=== PATIENT | female | born 1970 | race Asian ===

== ENCOUNTER 2016-12-30 18:05 | Emergency (ER) | payer MEDICAID, OTHER ==
[~2016-12-30] VITALS: Ht 157.5 cm; Wt 86.4 kg
[~2016-12-30 18:05] MED LIST: NOCURR
[2016-12-30] MEDS ORDERED: HYDROCODONE/ACETAMINOPHEN 5-325 MG TABLET PO ONE (20:15)
[2016-12-30] MEDS ORDERED: KETOROLAC TROMETHAMINE 60 MG/2 ML VIAL IM ONE (20:15)
[2016-12-30] MEDS ORDERED: METHOCARBAMOL 500 MG TABLET PO ONE (20:15)
[2016-12-30 21:25] VITALS: BP 138/89
== END 2016-12-30 21:35 | disposition home or self-care (01) ==
LOC: EMS 18:09
DX: M25.512 Pain in left shoulder (principal)
CPT/HCPCS: 29105; 73030; 96372; 99284; J1885

== ENCOUNTER 2019-01-09 19:03 | Emergency (ER) | payer OTHER ==
[~2019-01-09] VITALS: Ht 154.9 cm; Wt 81.8 kg
[2019-01-09] MEDS ORDERED: IBUPROFEN 600 MG TABLET PO ONE (20:45)
[2019-01-09 22:02] VITALS: BP 124/80
== END 2019-01-09 22:00 | disposition home or self-care (01) ==
LOC: EMS 19:03
DX: M25.571 Pain in right ankle and joints of right foot (principal); M25.471 Effusion, right ankle
CPT/HCPCS: 29540

== ENCOUNTER 2019-11-04 05:48 | Inpatient (IN) | payer OTHER ==
[~2019-11-04] VITALS: Ht 154.9 cm; Wt 86.5 kg
[2019-11-04] MEDS ORDERED: ALBU8HFA IH (06:10)
[2019-11-04 06:47] LABS: BASOPHILS % (AUTO) 1.5 % (0.0-2.0); EOSINOPHILS % (AUTO) 2.6 % (1.0-6.0); HEMATOCRIT 32.1 % (36-46); HEMOGLOBIN 9.6 g/dL (12.0-16.0); LYMPHOCYTES # (AUTO) 2.2 K/uL (1.0-4.8); LYMPHOCYTES % (AUTO) 31.7 % (22.0-44.0); MEAN CORPUSCULAR HEMOGLOBIN 20.2 pg (26.0-34.0); MEAN CORPUSCULAR HGB CONC 29.9 G/dL (31.0-37.0); MEAN CORPUSCULAR VOLUME 68 fL (80-100); MONOCYTES # (AUTO) 0.6 K/uL (0.1-1.0); MONOCYTES % (AUTO) 7.8 % (2.0-9.0); NEUTROPHILS % (AUTO) 56.4 % (40.0-70.0); PLATELET COUNT (AUTO) 449 K/uL (150-450); RED BLOOD CELL COUNT(AUTO) 4.74 MIL/uL (4.00-5.20); RED CELL DISTRIBUTION WIDTH 16.5 % (11.5-14.5)
[2019-11-04 06:55] LABS: ANION GAP 10 mmol/L (8-16); CALCIUM, TOTAL 8.5 mg/dL (8.8-10.5); CARBON DIOXIDE 23 mmol/L (22-29); CHLORIDE 99 mmol/L (98-107); CREATININE 0.82 mg/dL (0.60-1.30); GLOMERULAR FILTR. RATE CALC > 60 mL/min (>60); GLUCOSE,RANDOM 106 mg/dL (70-110); POTASSIUM 4.4 mmol/L (3.5-5.1); SODIUM SERUM 132 mmol/L (136-145); UREA NITROGEN, BLOOD 14 mg/dL (7-18)
[2019-11-04 07:02] LABS: ALANINE AMINOTRANSFERASE 147 U/L (12-78); ALBUMIN 3.2 g/dL (3.4-5.0); ALKALINE PHOSPHATASE 206 U/L (46-116); ASPARTATE AMINOTRANSFERASE 78 U/L (15-37); BILIRUBIN,TOTAL 0.6 mg/dL (0.1-1.0); TOTAL PROTEIN, SERUM 6.7 g/dL (6.4-8.2)
[2019-11-04 07:12] LABS: B-TYPE NATRIURETIC PEPTIDE 254 pg/mL (0-100)
[2019-11-04] MEDS ORDERED: LORazepam 1 MG TABLET PO ONE (07:15)
[2019-11-04] MEDS ORDERED: IOVERSOL 350 MG/ML 100 ML VIAL ONE (07:16)
[2019-11-04] MEDS ORDERED: SODIUM CHLORIDE 0.9% 100 ML ONE (07:17)
[2019-11-04] MEDS ORDERED: NITROGLYCERIN 2% (1 GM=INCH) PACKET TP ONE (09:45)
[2019-11-04] MEDS ORDERED: 0.9% SODIUM CHLORIDE 10 ML SYRINGE IVP PRN ×2 (09:45→12:15)
[2019-11-04] MEDS ORDERED: ASPIRIN 81 MG CHEWABLE TABLET PO ONE (09:45)
[2019-11-04] MEDS ORDERED: ACETAMINOPHEN 325 MG TABLET PO PRN (09:45)
[2019-11-04] MEDS ORDERED: ALBUTEROL SULFATE/IPRATROPIUM 100-20 MCG/SPRAY 4 GM INHALER IH PRN (12:00)
[2019-11-04] MEDS ORDERED: ONDANSETRON HCL 4 MG/2 ML VIAL IVP PRN (12:15)
[2019-11-04] MEDS ORDERED: ALBUTEROL SULFATE 2.5 MG/0.5 ML NEB SOLUTION NEB PRN (12:15)
[2019-11-04] MEDS ORDERED: BISACODYL 10 MG RECTAL RECTAL SUPPOSITORY PR PRN (12:15)
[2019-11-04] MEDS ORDERED: IPRATROPIUM BROMIDE 0.5 MG/2.5 ML NEB SOLUTION NEB PRN (12:15)
[2019-11-04] MEDS ORDERED: MAGNESIUM HYDROXIDE SUSPENSION 30 ML UDCUP PO PRN (12:15)
[2019-11-04] MEDS ORDERED: DOCUSATE SODIUM 100 MG CAPSULE PO PRN (12:15)
[2019-11-04] MEDS: PANTOPRAZOLE SODIUM 40 MG DR TABLET PO SCH (12:26)
[2019-11-04 12:49] LABS: C-REACTIVE PROTEIN QUANT 0.38 mg/dL (0.00-0.30); FERRITIN 12 ng/mL (8-252)
[2019-11-04] MEDS: ALBUTEROL SULFATE/IPRATROPIUM 100-20 MCG/SPRAY 4 GM INHALER IH SCH (20:00)
[2019-11-04 21:03] VITALS: BP 146/107
[2019-11-04 23:25] VITALS: BP 145/103
[2019-11-05] MEDS: ALBUTEROL SULFATE/IPRATROPIUM 100-20 MCG/SPRAY 4 GM INHALER IH SCH ×4 (02:00→20:50)
[2019-11-05] MEDS: CloNIDine HCL 0.1 MG TABLET PO PRN (03:25)
[2019-11-05 03:33] VITALS: BP 147/113
[2019-11-05 07:28] LABS: BASOPHILS % (AUTO) 1.3 % (0.0-2.0); HEMATOCRIT 30.6 % (36-46); HEMOGLOBIN 9.7 g/dL (12.0-16.0); LYMPHOCYTES # (AUTO) 2.9 K/uL (1.0-4.8); LYMPHOCYTES % (AUTO) 37.7 % (22.0-44.0); MEAN CORPUSCULAR HGB CONC 31.6 G/dL (31.0-37.0); MEAN CORPUSCULAR VOLUME 66 fL (80-100); MONOCYTES # (AUTO) 0.6 K/uL (0.1-1.0); MONOCYTES % (AUTO) 7.2 % (2.0-9.0); NEUTROPHILS # (AUTO) 3.9 K/uL (1.8-7.7); NEUTROPHILS % (AUTO) 50.8 % (40.0-70.0); PLATELET COUNT (AUTO) 392 K/uL (150-450); RED BLOOD CELL COUNT(AUTO) 4.61 MIL/uL (4.00-5.20); RED CELL DISTRIBUTION WIDTH 16.7 % (11.5-14.5)
[2019-11-05 08:00] VITALS: BP 143/105
[2019-11-05 08:12] LABS: % IRON SATURATION 3.8 % (22-44); IRON, SERUM 16 mcg/dL (50-175); TOTAL IRON BINDING CAPACITY 413 mcg/dL (250-450)
[2019-11-05 08:23] LABS: ANION GAP 11 mmol/L (8-16); CALCIUM, TOTAL 8.3 mg/dL (8.8-10.5); CARBON DIOXIDE 21 mmol/L (22-29); CHLORIDE 103 mmol/L (98-107); CHOL/HDL RATIO 3.3 (3.9-5.7); CHOLESTEROL 107 mg/dL (131-200); CREATININE 0.73 mg/dL (0.60-1.30); FERRITIN 11 ng/mL (8-252); GLOMERULAR FILTR. RATE CALC > 60 mL/min (>60); GLUCOSE,RANDOM 90 mg/dL (70-110); HDL CHOLESTEROL 32 mg/dL (40-60); LDL CHOL (CALC.) 66 mg/dL (0-130); POTASSIUM 4.4 mmol/L (3.5-5.1); SODIUM SERUM 135 mmol/L (136-145); TRIGLYCERIDES 47 mg/dL (15-150); UREA NITROGEN, BLOOD 15 mg/dL (7-18)
[2019-11-05] MEDS: PANTOPRAZOLE SODIUM 40 MG DR TABLET PO SCH (09:27)
[2019-11-05] MEDS: ASPIRIN 81 MG CHEWABLE TABLET PO SCH (09:27)
[2019-11-05] MEDS ORDERED: METOPROLOL SUCCINATE 50 MG ER TABLET PO ONE (10:15)
[2019-11-05] MEDS ORDERED: ASPIRIN 81 MG EC TABLET PO SCH (10:15)
[2019-11-05] MEDS ORDERED: ATORVASTATIN CALCIUM 10 MG TABLET PO ONE (10:15)
[2019-11-05 11:56] VITALS: BP 146/112
[2019-11-05] MEDS: FERROUS SULFATE 325 MG EC TABLET PO SCH ×3 (13:06→21:57)
[2019-11-05] MEDS: CARVEDILOL 3.125 MG TABLET PO SCH ×2 (13:06→21:57)
[2019-11-05] MEDS: LOSARTAN POTASSIUM 25 MG TABLET PO SCH ×2 (13:07→21:57)
[2019-11-05 15:35] VITALS: BP 118/78
[2019-11-05 20:43] VITALS: BP 132/69
[2019-11-05] MEDS: DOCUSATE SODIUM 100 MG CAPSULE PO SCH (21:57)
[2019-11-06 00:06] VITALS: BP 140/103
[2019-11-06] MEDS: CloNIDine HCL 0.1 MG TABLET PO PRN (00:29)
[2019-11-06] MEDS: ALBUTEROL SULFATE/IPRATROPIUM 100-20 MCG/SPRAY 4 GM INHALER IH SCH ×4 (02:06→20:38)
[2019-11-06 05:20] VITALS: BP 129/98
[2019-11-06 08:08] LABS: BASOPHILS % (AUTO) 1.4 % (0.0-2.0); EOSINOPHILS % (AUTO) 2.9 % (1.0-6.0); HEMATOCRIT 30.5 % (36-46); HEMOGLOBIN 9.4 g/dL (12.0-16.0); MEAN CORPUSCULAR HEMOGLOBIN 20.6 pg (26.0-34.0); MEAN CORPUSCULAR HGB CONC 30.7 G/dL (31.0-37.0); MEAN CORPUSCULAR VOLUME 67 fL (80-100); MONOCYTES # (AUTO) 0.5 K/uL (0.1-1.0); NEUTROPHILS # (AUTO) 4.7 K/uL (1.8-7.7); NEUTROPHILS % (AUTO) 62.7 % (40.0-70.0); PLATELET COUNT (AUTO) 363 K/uL (150-450); RED BLOOD CELL COUNT(AUTO) 4.55 MIL/uL (4.00-5.20); RED CELL DISTRIBUTION WIDTH 16.4 % (11.5-14.5)
[2019-11-06 08:19] VITALS: BP 132/91
[2019-11-06 08:32] LABS: ALANINE AMINOTRANSFERASE 167 U/L (12-78); ALKALINE PHOSPHATASE 186 U/L (46-116); ANION GAP 9 mmol/L (8-16); ASPARTATE AMINOTRANSFERASE 145 U/L (15-37); BILIRUBIN,TOTAL 0.8 mg/dL (0.1-1.0); CALCIUM, TOTAL 8.4 mg/dL (8.8-10.5); CARBON DIOXIDE 24 mmol/L (22-29); CHLORIDE 104 mmol/L (98-107); CREATININE 0.82 mg/dL (0.60-1.30); GLOMERULAR FILTR. RATE CALC > 60 mL/min (>60); GLUCOSE,RANDOM 87 mg/dL (70-110); POTASSIUM 4.2 mmol/L (3.5-5.1); SODIUM SERUM 137 mmol/L (136-145); TOTAL PROTEIN, SERUM 6.5 g/dL (6.4-8.2); UREA NITROGEN, BLOOD 20 mg/dL (7-18)
[2019-11-06] MEDS: FERROUS SULFATE 325 MG EC TABLET PO SCH ×4 (08:34→21:19)
[2019-11-06] MEDS: LOSARTAN POTASSIUM 25 MG TABLET PO SCH (08:35)
[2019-11-06] MEDS: ASPIRIN 81 MG CHEWABLE TABLET PO SCH (08:35)
[2019-11-06] MEDS: DOCUSATE SODIUM 100 MG CAPSULE PO SCH ×2 (08:35→21:19)
[2019-11-06] MEDS: PANTOPRAZOLE SODIUM 40 MG DR TABLET PO SCH (08:36)
[2019-11-06] MEDS: CARVEDILOL 3.125 MG TABLET PO SCH (08:36)
[2019-11-06 12:34] VITALS: BP 127/89
[2019-11-06 15:07] VITALS: BP 120/75
[2019-11-06 19:43] VITALS: BP 137/88
[2019-11-06] MEDS: LOSARTAN POTASSIUM 50 MG TABLET PO SCH (21:19)
[2019-11-06] MEDS: CARVEDILOL 6.25 MG TABLET PO SCH (21:19)
[2019-11-07] VITALS: BP 122/77
[2019-11-07] MEDS: ALBUTEROL SULFATE/IPRATROPIUM 100-20 MCG/SPRAY 4 GM INHALER IH SCH ×4 (02:04→19:57)
[2019-11-07 04:32] VITALS: BP 140/69
[2019-11-07 08:03] VITALS: BP 135/95
[2019-11-07] MEDS: FERROUS SULFATE 325 MG EC TABLET PO SCH ×4 (08:51→20:28)
[2019-11-07] MEDS: DOCUSATE SODIUM 100 MG CAPSULE PO SCH ×2 (08:52→20:28)
[2019-11-07] MEDS: ASPIRIN 81 MG CHEWABLE TABLET PO SCH (08:52)
[2019-11-07] MEDS: CARVEDILOL 6.25 MG TABLET PO SCH (08:52)
[2019-11-07] MEDS: LOSARTAN POTASSIUM 50 MG TABLET PO SCH ×2 (08:53→20:28)
[2019-11-07] MEDS: PANTOPRAZOLE SODIUM 40 MG DR TABLET PO SCH (08:53)
[2019-11-07 10:36] LABS: BASOPHILS % (AUTO) 1.2 % (0.0-2.0); EOSINOPHILS % (AUTO) 3.9 % (1.0-6.0); HEMATOCRIT 31.9 % (36-46); LYMPHOCYTES # (AUTO) 2.3 K/uL (1.0-4.8); LYMPHOCYTES % (AUTO) 30.1 % (22.0-44.0); MEAN CORPUSCULAR HGB CONC 31.2 G/dL (31.0-37.0); MEAN CORPUSCULAR VOLUME 67 fL (80-100); MONOCYTES # (AUTO) 0.6 K/uL (0.1-1.0); NEUTROPHILS # (AUTO) 4.4 K/uL (1.8-7.7); NEUTROPHILS % (AUTO) 56.8 % (40.0-70.0); PLATELET COUNT (AUTO) 382 K/uL (150-450); RED BLOOD CELL COUNT(AUTO) 4.74 MIL/uL (4.00-5.20); RED CELL DISTRIBUTION WIDTH 16.4 % (11.5-14.5)
[2019-11-07] MEDS ORDERED: METOPROLOL TARTRATE 50 MG TABLET PO ONE (11:00)
[2019-11-07 11:05] LABS: ALANINE AMINOTRANSFERASE 211 U/L (12-78); ALKALINE PHOSPHATASE 195 U/L (46-116); ANION GAP 10 mmol/L (8-16); ASPARTATE AMINOTRANSFERASE 163 U/L (15-37); BILIRUBIN,TOTAL 0.6 mg/dL (0.1-1.0); CALCIUM, TOTAL 8.3 mg/dL (8.8-10.5); CARBON DIOXIDE 23 mmol/L (22-29); CHLORIDE 103 mmol/L (98-107); CREATININE 0.82 mg/dL (0.60-1.30); GLOMERULAR FILTR. RATE CALC > 60 mL/min (>60); GLUCOSE,RANDOM 80 mg/dL (70-110); POTASSIUM 3.9 mmol/L (3.5-5.1); SODIUM SERUM 136 mmol/L (136-145); TOTAL PROTEIN, SERUM 6.6 g/dL (6.4-8.2); UREA NITROGEN, BLOOD 21 mg/dL (7-18)
[2019-11-07 11:33] VITALS: BP 125/80
[2019-11-07] MEDS ORDERED: NITROGLYCERIN 400 MCG/SUBLINGUAL SPRAY 4.9 GM BOTTLE SL ONE (12:20)
[2019-11-07] MEDS ORDERED: METOPROLOL TARTRATE 5 MG/5 ML VIAL ONE (12:20)
[2019-11-07] MEDS ORDERED: SODIUM CHLORIDE 0.9% 100 ML ONE (13:27)
[2019-11-07] MEDS ORDERED: IOVERSOL 350 MG/ML 150 ML VIAL ONE (13:27)
[2019-11-07 16:00] VITALS: BP 134/76
[2019-11-07] MEDS: ACETAMINOPHEN 325 MG TABLET PO PRN ×2 (17:56→21:48)
[2019-11-07 19:24] VITALS: BP 109/73
[2019-11-07] MEDS: CARVEDILOL 12.5 MG TABLET PO SCH (20:28)
[2019-11-08] VITALS (8 sets, daily range): BP systolic 106–136; BP diastolic 67–90
[2019-11-08] MEDS: ALBUTEROL SULFATE/IPRATROPIUM 100-20 MCG/SPRAY 4 GM INHALER IH SCH ×4 (02:33→19:59)
[2019-11-08 07:51] LABS: BASOPHILS % (AUTO) 1.9 % (0.0-2.0); HEMATOCRIT 31.9 % (36-46); HEMOGLOBIN 9.6 g/dL (12.0-16.0); LYMPHOCYTES # (AUTO) 1.6 K/uL (1.0-4.8); LYMPHOCYTES % (AUTO) 21.8 % (22.0-44.0); MEAN CORPUSCULAR HEMOGLOBIN 20.3 pg (26.0-34.0); MEAN CORPUSCULAR VOLUME 68 fL (80-100); MONOCYTES # (AUTO) 0.6 K/uL (0.1-1.0); MONOCYTES % (AUTO) 7.7 % (2.0-9.0); NEUTROPHILS # (AUTO) 4.8 K/uL (1.8-7.7); NEUTROPHILS % (AUTO) 66.6 % (40.0-70.0); PLATELET COUNT (AUTO) 331 K/uL (150-450); RED CELL DISTRIBUTION WIDTH 16.8 % (11.5-14.5)
[2019-11-08 08:05] LABS: ANION GAP 9 mmol/L (8-16); CALCIUM, TOTAL 8.5 mg/dL (8.8-10.5); CARBON DIOXIDE 21 mmol/L (22-29); CHLORIDE 103 mmol/L (98-107); CREATININE 0.84 mg/dL (0.60-1.30); GLOMERULAR FILTR. RATE CALC > 60 mL/min (>60); GLUCOSE,RANDOM 80 mg/dL (70-110); POTASSIUM 3.9 mmol/L (3.5-5.1); SODIUM SERUM 133 mmol/L (136-145); UREA NITROGEN, BLOOD 25 mg/dL (7-18)
[2019-11-08] MEDS: CARVEDILOL 12.5 MG TABLET PO SCH ×2 (08:17→20:46)
[2019-11-08] MEDS: DOCUSATE SODIUM 100 MG CAPSULE PO SCH ×2 (08:17→20:46)
[2019-11-08] MEDS: FERROUS SULFATE 325 MG EC TABLET PO SCH ×4 (08:17→20:46)
[2019-11-08] MEDS: LOSARTAN POTASSIUM 50 MG TABLET PO SCH ×2 (08:17→20:46)
[2019-11-08] MEDS: ASPIRIN 81 MG CHEWABLE TABLET PO SCH (08:17)
[2019-11-08] MEDS: PANTOPRAZOLE SODIUM 40 MG DR TABLET PO SCH (08:17)
[2019-11-08] MEDS: ACETAMINOPHEN 325 MG TABLET PO PRN (18:20)
[2019-11-09] MEDS: ALBUTEROL SULFATE/IPRATROPIUM 100-20 MCG/SPRAY 4 GM INHALER IH SCH ×3 (02:06→13:32)
[2019-11-09 07:57] VITALS: BP 117/73
[2019-11-09] MEDS: ASPIRIN 81 MG CHEWABLE TABLET PO SCH (08:03)
[2019-11-09] MEDS: PANTOPRAZOLE SODIUM 40 MG DR TABLET PO SCH (08:03)
[2019-11-09] MEDS: DOCUSATE SODIUM 100 MG CAPSULE PO SCH (08:03)
[2019-11-09] MEDS: FERROUS SULFATE 325 MG EC TABLET PO SCH ×2 (08:03→12:01)
[2019-11-09] MEDS: CARVEDILOL 12.5 MG TABLET PO SCH (08:03)
[2019-11-09] MEDS: ACETAMINOPHEN 325 MG TABLET PO PRN (08:04)
[2019-11-09] MEDS: LOSARTAN POTASSIUM 50 MG TABLET PO SCH (08:05)
[2019-11-09 09:20] LABS: BASOPHILS % (AUTO) 1.4 % (0.0-2.0); EOSINOPHILS % (AUTO) 5.2 % (1.0-6.0); HEMATOCRIT 33.9 % (36-46); HEMOGLOBIN 10.1 g/dL (12.0-16.0); LYMPHOCYTES # (AUTO) 2.1 K/uL (1.0-4.8); LYMPHOCYTES % (AUTO) 25.8 % (22.0-44.0); MEAN CORPUSCULAR HEMOGLOBIN 20.5 pg (26.0-34.0); MEAN CORPUSCULAR HGB CONC 29.7 G/dL (31.0-37.0); MEAN CORPUSCULAR VOLUME 69 fL (80-100); MONOCYTES # (AUTO) 0.3 K/uL (0.1-1.0); MONOCYTES % (AUTO) 4.2 % (2.0-9.0); NEUTROPHILS # (AUTO) 5.1 K/uL (1.8-7.7); NEUTROPHILS % (AUTO) 63.4 % (40.0-70.0); PLATELET COUNT (AUTO) 344 K/uL (150-450); RED BLOOD CELL COUNT(AUTO) 4.91 MIL/uL (4.00-5.20)
[2019-11-09 09:45] LABS: ALANINE AMINOTRANSFERASE 225 U/L (12-78); ALBUMIN 2.8 g/dL (3.4-5.0); ALKALINE PHOSPHATASE 206 U/L (46-116); ANION GAP 12 mmol/L (8-16); ASPARTATE AMINOTRANSFERASE 130 U/L (15-37); BILIRUBIN,TOTAL 0.6 mg/dL (0.1-1.0); CALCIUM, TOTAL 7.9 mg/dL (8.8-10.5); CARBON DIOXIDE 20 mmol/L (22-29); CHLORIDE 105 mmol/L (98-107); CREATININE 0.91 mg/dL (0.60-1.30); GLOMERULAR FILTR. RATE CALC > 60 mL/min (>60); GLUCOSE,RANDOM 149 mg/dL (70-110); POTASSIUM 3.9 mmol/L (3.5-5.1); SODIUM SERUM 137 mmol/L (136-145); TOTAL PROTEIN, SERUM 6.6 g/dL (6.4-8.2); UREA NITROGEN, BLOOD 22 mg/dL (7-18)
[2019-11-09 11:53] VITALS: BP 112/66
[2019-11-09] MEDS ORDERED: ASPI-728 PO (14:08)
[2019-11-09] MEDS ORDERED: LOSA-88 PO (14:08)
[2019-11-09] MEDS ORDERED: CARV12 PO (14:08)
== END 2019-11-09 16:46 | disposition home or self-care (01) | DRG 207 ==
LOC: EMS 05:48 → ICUN 12:21 → 5N 12:22 → 5S 11-07 10:35 → 6N 11-08 17:36
PROVIDERS: ADMIT Internal Medicine; ATTEND Internal Medicine
DX: I30.9 Acute pericarditis, unspecified (principal); I50.21 Acute systolic (congestive) heart failure; E87.1 Hypo-osmolality and hyponatremia; I42.0 Dilated cardiomyopathy; E87.70 Fluid overload, unspecified; D50.9 Iron deficiency anemia, unspecified; F15.10 Other stimulant abuse, uncomplicated; I20.0 Unstable angina; I11.0 Hypertensive heart disease with heart failure; I42.8 Other cardiomyopathies; R79.89 Other specified abnormal findings of blood chemistry; J45.909 Unspecified asthma, uncomplicated; Z20.828 Contact with and (suspected) exposure to other viral communicable diseases; Z79.82 Long term (current) use of aspirin; Z98.891 History of uterine scar from previous surgery; Z87.01 Personal history of pneumonia (recurrent); Z83.3 Family history of diabetes mellitus; Z82.49 Family history of ischemic heart disease and other diseases of the circulatory system
CPT/HCPCS: 71275; 75574; 76536; 76700; 80074; 82270; 82728; 83540; 83550; 83735; 84145; 86140; 87081; 87635; 93005; 93306; 94640; J3490; J7050

== ENCOUNTER 2025-04-10 16:03 | Emergency (ER) | payer OTHER ==
[~2025-04-10] VITALS: Ht 154.9 cm; Wt 81.8 kg
[~2025-04-10 16:03] MED LIST changes: +ALBU18HF12 IH; +ASPI-1450 PO; +CARV12 PO; +LOSA-382 PO; -NOCURR
[2025-04-10 16:22] VITALS: TEMP 98
[2025-04-10 17:43] LABS: PLATELET COUNT (AUTO) 282 K/uL (150-450); RED BLOOD CELL COUNT(AUTO) 4.31 MIL/uL (4.00-5.20); RED CELL DISTRIBUTION WIDTH 13.5 % (11.5-14.5); WHITE BLOOD COUNT (AUTO) 5.8 K/uL (4.5-11.0)
[2025-04-10 17:52] LABS: CALCIUM, TOTAL 9.0 mg/dL (8.8-10.5); CREATININE 0.72 mg/dL (0.60-1.30); GLOMERULAR FILTR. RATE CALC > 60 mL/min (>60); GLUCOSE,RANDOM 112 mg/dL (70-110); SODIUM SERUM 137 mmol/L (136-145); UREA NITROGEN, BLOOD 19 mg/dL (7-18)
[2025-04-10 21:15] VITALS: BP 118/85; PULSE 73; RESP 18; O2SAT 94
[2025-04-10 21:36] LABS: APPEARANCE,URINE CLEAR (CLEAR); GLUCOSE, URINE (UA) >=1000 mg/dL (NEGATIVE); LEUKOCYTE ESTERASE ,URINE TRACE (NEGATIVE); NITRATE,URINE POSITIVE (NEGATIVE); OCCULT BLOOD,URINE NEGATIVE (NEGATIVE); SPECIFIC GRAVITIY, URINE 1.042 (1.003-1.030)
[2025-04-10 21:54] LABS: SQUAMOUS EPITHELIAL CELL,UR Few /LPF (None Seen)
[2025-04-10 23:26] LABS: TROPONIN I-HIGH SENSITIVITY 9 ng/L (<51)
[2025-04-11] MEDS ORDERED: CEPH-558 PO (00:07)
[2025-04-11] MEDS: CEPHALEXIN MONOHYDRATE 500 MG CAPSULE PO ONE (00:15)
== END 2025-04-11 00:24 | disposition home or self-care (01) ==
LOC: EMS 16:03
DX: N39.0 Urinary tract infection, site not specified (principal); R42 Dizziness and giddiness; I10 Essential (primary) hypertension; J45.909 Unspecified asthma, uncomplicated; F15.90 Other stimulant use, unspecified, uncomplicated; Z87.891 Personal history of nicotine dependence; Z79.82 Long term (current) use of aspirin; Z86.73 Personal history of transient ischemic attack (TIA), and cerebral infarction without residual deficits; Z79.899 Other long term (current) drug therapy; Z98.890 Other specified postprocedural states
CPT/HCPCS: 71045; 80048; 81001; 83880; 84484; 85025; 87077; 87086; 87186; 93005; 99285; 36415-L1; 36415-TC